=== PATIENT | male | born 1945 | race Caucasian/White ===

== ENCOUNTER → 2016-11-02 | Outpatient (CLI) | payer MEDICARE, BC | DX: E78.2 Mixed hyperlipidemia (principal); R97.20 Elevated prostate specific antigen [PSA]; Z79.899 Other long term (current) drug therapy ==

== ENCOUNTER 2017-01-10 12:42 | Day surgery (SDC) | payer MEDICARE, BC ==
[2017-01-10] MEDS ORDERED: LACTATED RINGERS 1,000 ML IV ONE (13:22)
[2017-01-10] MEDS ORDERED: fentaNYL 250 MCG/5 ML VIAL IVP ONE (13:50)
[2017-01-10] MEDS ORDERED: MIDAZOLAM 2 MG/2 ML VIAL IVP ONE (13:50)
== END 2017-01-10 12:43 | disposition home or self-care (01) ==
PROC: 0DBN8ZX Excision of Sigmoid Colon, Via Natural or Artificial Opening Endoscopic, Diagnostic (ICD-10-PCS; principal; 2017-01-10 14:00)
DX: C18.7 Malignant neoplasm of sigmoid colon (principal); K57.30 Diverticulosis of large intestine without perforation or abscess without bleeding; K64.8 Other hemorrhoids; Z83.3 Family history of diabetes mellitus; E78.00 Pure hypercholesterolemia, unspecified
CPT/HCPCS: 45385; J3010; J7120

== ENCOUNTER 2017-01-19 11:10 | Outpatient (CLI) | payer MEDICARE, BC | END 2017-01-19 11:11 | disposition home or self-care (01) | DX: C18.7 Malignant neoplasm of sigmoid colon (principal) ==

== ENCOUNTER 2017-01-24 11:32 | Outpatient (CLI) | payer MEDICARE, BC ==
[2017-01-24] MEDS ORDERED: IOPAMIDOL-300 50 ML VIAL IVP ONE (13:40)
[2017-01-24] MEDS ORDERED: IOPAMIDOL-300 50 ML VIAL PO ONE (14:00)
== END 2017-01-24 11:33 | disposition home or self-care (01) ==
DX: C18.7 Malignant neoplasm of sigmoid colon (principal)
CPT/HCPCS: 74177; Q9967

== ENCOUNTER 2017-02-08 09:11 | Inpatient (IN) | payer MEDICARE, BC ==
[~2017-02-08 09:11] MED LIST: ceFAZolin 2 GM/50 ML 50 ML IV ONE
[2017-02-08] MEDS ORDERED: LACTATED RINGERS 1,000 ML IV ONE ×4 (09:28→16:35)
[2017-02-08] MEDS ORDERED: ROCURONIUM 50 MG/5 ML VIAL IVP ONE (11:00)
[2017-02-08] MEDS ORDERED: ePHEDrine 50 MG/ML AMP IVP ONE (11:00)
[2017-02-08] MEDS ORDERED: ACETAMINOPHEN 1,000 MG/100 ML VIAL IV ONE (11:00)
[2017-02-08] MEDS ORDERED: fentaNYL 100 MCG/2 ML VIAL IVP ONE (11:00)
[2017-02-08] MEDS ORDERED: PROPOFOL 200 MG/20 ML VIAL IVP ONE (11:00)
[2017-02-08] MEDS ORDERED: MIDAZOLAM 2 MG/2 ML VIAL IVP ONE (11:00)
[2017-02-08] MEDS ORDERED: LIDOCAINE-MPF 2% 5 ML VIAL IM ONE (11:00)
[2017-02-08] MEDS ORDERED: GLYCOPYRROLATE 1 MG/5 ML VIAL IVP ONE (11:00)
[2017-02-08] MEDS ORDERED: HYDROmorphone 1 MG/ML SYRINGE IVP ONE (11:00)
[2017-02-08] MEDS ORDERED: DEXAMETHASONE 4 MG/ML VIAL IVP ONE (11:00)
[2017-02-08] MEDS ORDERED: NEOSTIGMINE 1 MG/1 ML 10 ML MDV IVP ONE (11:00)
[2017-02-08] MEDS ORDERED: cefOXitin 2 GM in SODIUM CHLORIDE 0.9% MINIBAG 100 ML IV ONE (12:00)
[2017-02-08] MEDS ORDERED: BUPIVACAINE 0.5%-EPI 1:200000 PF 30 ML VIAL SUBQ ONE ×2 (13:02)
[2017-02-08] MEDS ORDERED: PHENOL THROAT SPRAY 177 ML MM PRN (17:02)
[2017-02-08] MEDS ORDERED: METOCLOPRAMIDE 10 MG/2 ML VIAL IVP PRN (17:02)
[2017-02-08] MEDS ORDERED: ONDANSETRON 4 MG/2 ML VIAL IVP PRN (17:02)
[2017-02-08] MEDS ORDERED: SODIUM CHLORIDE FLUSH 0.9% 10 ML SYRINGE IVP PRN (17:02)
[2017-02-08] MEDS ORDERED: PIPERACILLIN/TAZOBACTAM 3.375 GM in SODIUM CHLORIDE 0.9% MINIBAG 100 ML IV SCH (18:00)
[2017-02-08] MEDS: D5NS W/20 MEQ KCL 1,000 ML IV SCH (18:11)
[2017-02-08] MEDS: SODIUM CHLORIDE FLUSH 0.9% 10 ML SYRINGE IVP SCH (18:12)
[2017-02-09] MEDS: HYDROmorphone 1 MG/ML SYRINGE IVP PRN ×3 (02:06→21:01)
[2017-02-09 06:01] LABS: BASOPHILS % (AUTO) 0.2 %; EOSINOPHILS % (AUTO) 0.1 %; LYMPHOCYTES # (AUTO) 1.2 10^3/uL (1.5-3.5); LYMPHOCYTES % (AUTO) 14.3 %; MEAN CORPUSCULAR HEMOGLOBIN 31.7 pg (27.0-31.0); MEAN CORPUSCULAR HGB CONC 33.4 g/dL (32.0-36.0); MEAN PLATELET VOLUME 9.5 fL (7.4-11.4); MONOCYTES % (AUTO) 12.4 %; RED BLOOD COUNT 4.42 10^6/uL (4.70-6.10); RED CELL DISTRIBUTION WIDTH 13.4 % (12.0-15.0); UNCORRECTED WHITE BLOOD COUNT 8.2 x10^3/uL; WHITE BLOOD COUNT 8.2 x10^3/uL (4.8-10.8)
[2017-02-09 06:13] LABS: ALBUMIN/GLOBULIN RATIO 1.5 (1.0-2.2); BILIRUBIN,TOTAL 0.7 mg/dL (0.2-1.0); CALCIUM 8.3 mg/dL (8.5-10.3); CREATININE 0.9 mg/dL (0.6-1.2); POTASSIUM 4.3 mmol/L (3.5-5.0); TOTAL PROTEIN 6.1 g/dL (6.7-8.2)
[2017-02-09] MEDS: SODIUM CHLORIDE FLUSH 0.9% 10 ML SYRINGE IVP SCH ×3 (06:52→20:10)
[2017-02-09] MEDS: D5NS W/20 MEQ KCL 1,000 ML IV SCH ×2 (07:34→17:18)
[2017-02-09] MEDS: ENOXAPARIN 40 MG/0.4 ML SYRINGE SUBQ SCH (12:25)
--- NOTE | 2017-02-09 19:19 | OPERATIVE REPORT ---
Operative Report - General Admit Date: 02/08/17 Pre-Op Diagnosis: Sigmoid colon cancer Umbilical hernia Operative Procedure: Laparoscopic sigmoid colectomy Umbilical herniorrhaphy Post-Op Diagnosis: Same - Procedure Note Anesthesia Technique: Primary Surgeon: Randal Secondary Surgeon: Sophia : Professor Of Communication = Tramaine/Francisca : Fluids = 3200 mL, Urine output refer to nurse's notes Pathology: Sigmoid colon Estimated Blood Loss (in cc): 20 Drain/Tube Type: negative: Lamont drain, Constavac drain, Hemovac, Noam Caruso flat drain, Noam Caruso round drain, Noam Caruso drain, Lumbar drain, Nephrostomy, Osakis, Pig tail catheter, Self contained, T-tube, Other Complications: None - Other Other Information/Narrative: Details of the procedure: After verbal and written informed consent was obtained detailing the risks of infection, bleeding with all of its risks including transfusion, and the patient was brought to the operative suite and placed initially in the supine position on the operating room table and then once anesthetized in stirrups taking care to pad all extremities. Monitoring devices were applied along with TEDs and pneumatic compressive stockings. Care was taken to avoid pressure points. Prophylactic antibiotics were given. An adequate level of general endotracheal anesthesia was established by Naa Redd. Please note that the enesthetists for this procedure included Naa Redd who started the case and Jae Espinosa who completed the case. The abdomen was then prepped with ChloraPrep and draped in a sterile fashion. A "time in" then confirmed that the paitient was identified with 3 identifiers (name, birthdate and medical record number), the history and physical was in the chart, the signed consent confirming the procedure was in the chart, the patient was in the correct position, the aforementioned prophylactic measures were in place or given, we had the correct personel and equipment to complete the procedure and that anesthesia, surgery and nursing were given an opportunuty to express any concerns. The initial incision was at the umbilicus and dissection to the umbilical hernia sac was completed using blunt dissection. The sac was grasped with a Felicia and incised gaining entry into the abdomen. Through this opening a 12 mm blunt tipped, balloon tipped port was placed and the balloon was inflated to keep the port in position. The abdominal cavity was insufflated with carbon dioxide to steady-state pressure of 15 mmHg. Two additional 5 mm ports were placed in standard location for laparoscopic sigmoid colectomy (right anterior axillary line mid-abdomen and left anterior axillary line 3 cm above the left anterior iliac promontory), and a 12 mm port at the right anterior axillary line 3 cm above the left anterior iliac promontory. There were all placed under direct vision and without incident. The patient was then place in a rather steep Trendelenberg position with the right lateral decubitus tilt and a medial to lateral approach was employed. The interface of the mesentary and the retroperitoneum was opened using serial application of the Ligasure. In so doing and with some traction and countertraction the inferior mesenteric artery (JENNY) immediately came into view , as well as two avascular mesenteric windows, above and below the JENNY. The JENNY was circumferentially isolated. Through the inferior avascular window the left ureter was seen and carefully preserved. These windows were used for retraction lifting the mesentary to the anterior abdominal wall so as to minimize trauma to the tissues. With the JENNY and IMV skeletonized and the left ureter clearly and safely away from the dissection the JENNY and IMV were ligated close to the artery's junction with the aorta to ensure that an adequate lymph node yield was achieved. This was accomplished using a endostapler with a vascular load. The dissection continued superiorly and inferiorly through these relatively avascular planes using traction and countertraction as well as the Ligasure when vessels were encountered. In this manner the distal sigmoid and distal descending colon was mobilized. At this point, the patient was placed in reverse Trendeleberg position still with the right lateral decubitus tilt and the descending colon was retracted toward the anterior abdominal wall and the midline of the peritoneal cavity. The line of fusion between the posterior aspect of the colon mesentery and the retroperitoneum (white line of Toldt) marked the line of dissection, allowing mobilization of the remaining left colon to the midline. The colon was retracted, and the white line of Toldt was scored with Ligasure as well as Bovie electrocautery all the way to the splenic flexure and with traction and countertraction the colon was brought to the midline. Throughout this dissection the left ureter was seen and unharmed. The proposed proximal transection point was then mobilized into the pelvis and noted to reach into the pelvis without any tension. I was satisfied the the anastamosis would be able to be accomplished without any tension on the anastamosis. The distal margin of the transection was determined and the colon was transected at this point with the endostapler using a GI load. The distal colon was then grasped with an endoBabcock. After releasing the insufflation, the umbilical incision was then enlarged to 4 cm with a scalpel and the fascial opening was similarly enlarged. A wound protector was placed. The endoBabcock was used to pass the distal colon margin up to the umbilical incision. The colon was grasped and gently brought out through the skin incision. The proximal point of transection was determined and a reusable automatic pursestring device was placed across the colon and the pursestring created with the passage of a 3-0 Prolene on a Akin needle through the device. With a bowel clamp on the bowel about to be transected to minimze spillage, the bowel was transected with a scalpel and sent off the operative field to be sent to pathology. The pursestring was opened and a 31 mm anvil from an EEA stapler placed in the open end and the pursestring tied tight around the post. This was then dropped into the abdomen and the wound protector removed. The fascia at the umbilcus was closed in order to allow us to re-establish a pneumoperitoneum thus repairing the umbilical hernia. With the pneumoperitoneum re-established the EEA stapler was placed transanally with the aid of a water soluble lubricant and the spike brought out under direct vision. There was some difficulty placing the stapler due to some ano- rectal stenosis but eventually the stapler could be seen placed close to the stapled, transected distal sigmoid colon. Please note that the spike could not be placed through or near our staple line rather there is a small "blind end." The post of the anvil was then placed over the spike and the stapler screwed down tight and fired thus creating the colocolostomy. With the pelvis filled with sterile saline, the rectum was filled with air using a proctoscope and no leak of air was noted. Satisfied that there was no leak, the saline was removed. The anastamosis was visually checked for a leak and there was none. There was no bleeding noted. All port sites were the injected at the peritoneal, fascial and skin levels with 1/2% Marcaine under direct vision. Meticulous hemostasis was obtained using Bovie electrocautery. The skin incisions were approximated with a running 4-0 Monocryl. At this point a time out was performed that confirmed that all the counts were correct, the procedure that was performed, the blood loss, the IV fluids administered, and the patients condition. The prep was washed off and Benzoin and steristrips were applied. Having tolerated the procedure well, the patient was subsequently extubated and taken to recovery room in good and stable condition.
[2017-02-10] MEDS: D5NS W/20 MEQ KCL 1,000 ML IV SCH ×4 (00:07→21:29)
[2017-02-10] MEDS: HYDROmorphone 1 MG/ML SYRINGE IVP PRN ×3 (03:23→16:35)
[2017-02-10] MEDS: SODIUM CHLORIDE FLUSH 0.9% 10 ML SYRINGE IVP SCH ×3 (05:23→21:30)
[2017-02-10] MEDS: ENOXAPARIN 40 MG/0.4 ML SYRINGE SUBQ SCH (09:23)
--- NOTE | 2017-02-10 23:48 | PROVIDER PROGRESS NOTE ---
Subjective - General Admit Date: 02/08/17 Procedure Date: 02/08/17 Post Op Days: 2 Procedure Performed: Laparoscopic sigmoidectomy and umbilical herniorrhaphy - Review of Systems Wound/Incisions: positive: Healing well (Minimal ecchymosis) General: positive: No symptoms (Generally feels good. 19 laps around nurses station. No flatus yet.) HEENT: positive: No symptoms Pulmonary: positive: No symptoms Cardiovascular: positive: No symptoms Gastrointestinal: positive: No symptoms, Abdominal pain (Minimal.) Objective - Patient Data Vital Signs: Vital Signs x48h Temp Pulse Resp BP Pulse Ox 02/10/17 19:45 36.9 C 80 16 121/80 98 02/10/17 16:00 36.7 C 87 18 150/90 H 98 Weight: Weight 02/08/17 02/09/17 02/10/17 23:59 23:59 23:59 Weight (kg) 75.1 kg Intake & Output: Intake and Output Totals x24h 02/08/17 02/09/17 02/10/17 23:59 23:59 23:59 Intake Total 4150 2665 2350 Output Total 400 1317 250 Balance 3750 1348 2100 - Lab Results Lab Results: 02/09/17 05:32 02/09/17 05:32 - Current Medications Current Medications: Current Medications Generic Name Dose Route Start Last Admin Trade Name Freq PRN Reason Stop Dose Admin Enoxaparin Sodium 40 mg 02/09/17 09:00 02/10/17 09:23 Lovenox SUBQ 40 mg DAILY ZAC Administration Hydromorphone HCl 0.5 mg 02/08/17 17:02 02/10/17 16:35 Dilaudid Inj IVP 0.5 mg Q30M PRN Administration PAIN Potassium Chloride/Dextrose/Sod Cl 1,000 mls @ 83 mls/hr 02/10/17 09:25 21:29 IV 83 mls/hr .Q12H3M ZAC Administration Sodium Chloride 10 ml 02/08/17 22:00 02/10/17 21:30 Normal Saline Flush 0.9% IVP Not Given Q8HR ZAC - Physical Exam Wound/Incisions: positive: Healing well (Minimal ecchymosis more around right lateral wound. No erythema.) General Appearance: positive: No acute distress Eyes Bilateral: positive: No lid inflammation, Conjunctivae nml, No scleral icterus Neck: positive: Trachea midline Respiratory: positive: Chest non-tender, No respiratory distress, Breath sounds nml Cardiovascular: positive: Regular rate & rhythm Abdomen: positive: Abnml bowel sounds (Slightly decreased.) Skin: positive: Color nml Extremities: positive: Non-tender, Full ROM, Nml appearance Neurologic/Psychiatric: positive: Oriented x3, Motor nml, Mood/affect nml Impression/Plan - Problem List Problem List: Day 2 s/p laparoscopic sigmoidectomy for cancer and umbilical herniorrhaphy 1) FEN: Doing well. No flatus yet. Tolerating saliva and ice chips. IVF decreased to 83 mL/hr. 2) Activity: Doing exceptionally well. Can have TEDs and venadynes removed as he is walking a lot. 3) Pathology: Not back yet. 4) GI: Awaiting bowel function to feed.
[2017-02-11] MEDS: HYDROmorphone 1 MG/ML SYRINGE IVP PRN (00:05)
[2017-02-11] MEDS: SODIUM CHLORIDE FLUSH 0.9% 10 ML SYRINGE IVP SCH (05:44)
[2017-02-11 08:32] VITALS: BP 133/87
[2017-02-11] MEDS ORDERED: D5NS W/20 MEQ KCL 1,000 ML IV SCH (09:10)
[2017-02-11] MEDS: ENOXAPARIN 40 MG/0.4 ML SYRINGE SUBQ SCH (09:11)
--- NOTE | 2017-02-11 13:26 | PROVIDER PROGRESS NOTE ---
Subjective - General Admit Date: 02/08/17 Procedure Date: 02/08/17 Post Op Days: 3 Procedure Performed: Laparoscopic sigmoidectomy and umbilical herniorrhaphy - Review of Systems Wound/Incisions: positive: Healing well (Minimal ecchymosis more around right lateral wound. No erythema.) General: positive: No symptoms (Generally feels good. 19 laps around nurses station. No flatus yet.) HEENT: positive: No symptoms Pulmonary: positive: No symptoms Cardiovascular: positive: No symptoms Gastrointestinal: positive: No symptoms, Flatus (Twice today.) Musculoskeletal: positive: No symptoms Skin: positive: No symptoms Psychiatric: positive: No symptoms Objective - Patient Data Reviewed Vital Signs: Yes Vital Signs: Vital Signs x48h Temp Pulse Resp BP Pulse Ox 02/11/17 08:31 36.6 C 81 14 133/87 H 98 Intake & Output: Intake and Output Totals x24h 02/09/17 02/10/17 02/11/17 23:59 23:59 23:59 Intake Total 2665 2350 758 Output Total 1317 250 250 Balance 1348 2100 508 - Lab Results Lab Results: 02/09/17 05:32 02/09/17 05:32 - Current Medications Current Medications: Current Medications Generic Name Dose Route Start Last Admin Trade Name Freq PRN Reason Stop Dose Admin Enoxaparin Sodium 40 mg 02/09/17 09:00 02/11/17 09:11 Lovenox SUBQ Not Given DAILY ZAC Hydromorphone HCl 0.5 mg 02/08/17 17:02 02/11/17 00:05 Dilaudid Inj IVP 0.5 mg Q30M PRN Administration PAIN Potassium Chloride/Dextrose/Sod Cl 1,000 mls @ 30 mls/hr 02/11/17 09:10 10:49 IV 30 mls/hr .[id number] ZAC Administration Sodium Chloride 10 ml 02/08/17 22:00 02/11/17 05:44 Normal Saline Flush 0.9% IVP Not Given Q8HR ZAC - Physical Exam Wound/Incisions: positive: Healing well General Appearance: positive: No acute distress Eyes Bilateral: positive: No lid inflammation, Conjunctivae nml, No scleral icterus Neck: positive: Trachea midline Respiratory: positive: Chest non-tender, No respiratory distress, Breath sounds nml Cardiovascular: positive: Regular rate & rhythm Abdomen: positive: Nml bowel sounds Skin: positive: Color nml Extremities: positive: Non-tender, Full ROM, Nml appearance Neurologic/Psychiatric: positive: Oriented x3 Comments/Other: Made 19 laps around nurses station yesterday and more today. Impression/Plan - Problem List Problem List: D3 s/p laparoscopic sigmoidectomy for cancer and umbilical herniorrhaphy Discharge home. Follow up with me in 1 week. Call with questions. General diet. No lifting >15 pounds for 6 weeks. Discussed with patient and .
--- NOTE | 2017-02-11 13:29 | Discharge Plan ---
Discharge Plan Disposition: Home, Self Care Condition: Good Prescriptions: Docusate Sodium 250Mg Capsule [Colace 250Mg Capsule] 250 mg PO DAILY #10 capsule oxyCODONE/ACET 5/325 [Percocet 5 mg/325 mg] 1 each PO Q4-6H #20 tablet Activity Restrictions: No lifting >15 pounds. (Patient can walk, run, climb stairs, general diet, shower, hot tub, swim and have sex.) Shower Restrictions: No Driving Restrictions: No Weight Bearing: Full Weight Additional Instructions or Follow Up instructions: Call with surgical questions . No Smoking: If you smoke, Please STOP! Call for help. Follow-up with: Fransisco Alcaraz MD [Primary Care Provider] - Remy Tee MD [Provider Admit Priv/Credential] -
--- NOTE | 2017-04-11 13:10 | DISCHARGE SUMMARY ---
DATE OF ADMISSION: 02/08/2017 DATE OF DISCHARGE: 02/11/2017 The patient was admitted to the hospital on 02/09/2017 with an admission diagnosis of sigmoid colon c ancer and umbilical hernia. He was taken to the operating room on the same date where a laparoscopic sigmoid colectomy and umbilical herniorrhaphy was performed. The surgeons of record are Randal and Sophia. The anesthetists were Tramaine and Francisca. Postoperatively the patient did well and was dis charged to home on the second postoperative date, 02/11/2017. He had been started on a liquid diet on the first postoperative day and graduated to a general diet on the 2nd prior to discharge. His activ ity or restrictions were no lifting greater than 15 pounds. He was told that he can walk, run, climb stairs, general diet, shower, hot tub, swim, and even have sex. He was to bear full weight. He is to followup with us in a week. He was also to followup with Dr. Fransisco Alcaraz in 1 to 2 weeks for any medical issues. JOB #: [id number] EXT JOB #:[id number]
== END 2017-02-11 14:11 | disposition home or self-care (01) | DRG 331 ==
LOC: MS 09:11
PROVIDERS: ADMIT Surgery; ATTEND Surgery
PROC: 0DBN4ZZ Excision of Sigmoid Colon, Percutaneous Endoscopic Approach (ICD-10-PCS; principal; 2017-02-08 10:15)
DX: C18.7 Malignant neoplasm of sigmoid colon (principal); K42.9 Umbilical hernia without obstruction or gangrene; E78.00 Pure hypercholesterolemia, unspecified; R06.83 Snoring; Z79.899 Other long term (current) drug therapy
CPT/HCPCS: 36415; 80053; 85025; 88307

== ENCOUNTER 2017-11-02 08:00 | Outpatient (CLI) | payer MEDICARE, BC ==
[2017-11-02 13:34] LABS: CHOL/HDL RATIO 4.2 (<5.0); CHOLESTEROL 154 mg/dL; HDL CHOLESTEROL 37 mg/dL; LDL CHOLESTEROL,CALCULATED 84 mg/dL; LDL/HDL RATIO 2.3 (<3.6); VLDL CHOLESTEROL 33 mg/dL
== END 2017-11-02 08:01 | disposition home or self-care (01) ==
LOC: LAB.R 08:00
PROVIDERS: ATTEND Internal Medicine
DX: Z12.5 Encounter for screening for malignant neoplasm of prostate (principal); E78.5 Hyperlipidemia, unspecified
CPT/HCPCS: 80061; G0103; 83721; 84153

== ENCOUNTER 2018-11-14 17:31 | Outpatient (CLI) | payer MEDICARE, BC | END 2018-11-14 17:32 | disposition EMS.NT | LOC: EMS 17:31 | PROVIDERS: ATTEND Surgery | DX: R09.89 Other specified symptoms and signs involving the circulatory and respiratory systems (principal) ==

== ENCOUNTER 2019-01-15 08:09 | Day surgery (SDC) | payer MEDICARE, BC ==
[2019-01-15] MEDS ORDERED: LACTATED RINGERS 1,000 ML IV ONE (08:45)
[2019-01-15] MEDS ORDERED: fentaNYL 100 MCG/2 ML VIAL IVP ONE (09:25)
[2019-01-15] MEDS ORDERED: MIDAZOLAM 2 MG/2 ML VIAL IVP ONE (09:25)
[2019-01-15 10:07] VITALS: BP 147/80
== END 2019-01-15 08:10 | disposition home or self-care (01) ==
LOC: SDS 08:09
PROVIDERS: ATTEND Surgery
PROC: 0DJD8ZZ Inspection of Lower Intestinal Tract, Via Natural or Artificial Opening Endoscopic (ICD-10-PCS; principal; 2019-01-15 09:45)
DX: Z08 Encounter for follow-up examination after completed treatment for malignant neoplasm (principal); Z85.038 Personal history of other malignant neoplasm of large intestine; Z90.49 Acquired absence of other specified parts of digestive tract; K64.8 Other hemorrhoids; K43.2 Incisional hernia without obstruction or gangrene
CPT/HCPCS: 45378; J7120

== ENCOUNTER 2020-03-11 08:50 | Outpatient (CLI) | payer MEDICARE, BC ==
[2020-03-11 09:05] LABS: BASOPHILS % (AUTO) 0.7 %; EOSINOPHILS # (AUTO) 0.2 10^3/uL (0.0-0.7); HGB - HEMOGLOBIN 16.7 g/dL (14.0-18.0); LYMPHOCYTES # (AUTO) 1.7 10^3/uL (1.5-3.5); LYMPHOCYTES % (AUTO) 30.2 %; MEAN CORPUSCULAR HEMOGLOBIN 31.3 pg (27.0-31.0); MEAN CORPUSCULAR HGB CONC 32.8 g/dL (32.0-36.0); MEAN CORPUSCULAR VOLUME 95.5 fL (80.0-94.0); MEAN PLATELET VOLUME 10.5 fL (7.4-11.4); MONOCYTES # (AUTO) 0.5 10^3/uL (0.0-1.0); MONOCYTES % (AUTO) 9.2 %; NEUTROPHILS # (AUTO) 3.1 10^3/uL (1.5-6.6); NEUTROPHILS % (AUTO) 55.4 %; PLT - PLATELET COUNT 148 10^3/uL (130-450); RED BLOOD COUNT 5.33 10^6/uL (4.70-6.10); RED CELL DISTRIBUTION WIDTH 12.5 % (12.0-15.0); WHITE BLOOD COUNT 5.5 x10^3/uL (4.8-10.8)
[2020-03-11 09:23] LABS: HB2 TOTAL 17.7 g/dL; HEMOGLOBIN A1C 0.66 g/dL; HEMOGLOBIN A1C % 5.6 % (4.6-6.2)
[2020-03-11 09:26] LABS: ALBUMIN 4.6 g/dL (3.2-5.5); ALBUMIN/GLOBULIN RATIO 1.7 (1.0-2.2); ALKALINE PHOSPHATASE 40 IU/L (42-121); ALT ALANINE AMINOTRANSFERASE 32 IU/L (10-60); AST ASPARTATE AMINOTRANSFERASE 27 IU/L (10-42); BILIRUBIN,TOTAL 0.6 mg/dL (0.2-1.0); BUN - BLOOD UREA NITROGEN 19 mg/dL (6-20); CALCIUM 9.5 mg/dL (8.5-10.3); CARBON DIOXIDE - CO2 28 mmol/L (21-32); CHLORIDE 104 mmol/L (101-111); CHOL/HDL RATIO 5.4 (<5.0); CHOLESTEROL 196 mg/dL; CREATININE 0.9 mg/dL (0.6-1.2); GLUCOSE 95 mg/dL (70-100); HDL CHOLESTEROL 36 mg/dL; LDL CHOLESTEROL,CALCULATED 105 mg/dL; LDL/HDL RATIO 2.9 (<3.6); SODIUM 138 mmol/L (135-145); TOTAL PROTEIN 7.3 g/dL (6.7-8.2); VLDL CHOLESTEROL 55 mg/dL
== END 2020-03-11 08:51 | disposition home or self-care (01) ==
LOC: LAB 08:50
PROVIDERS: ATTEND Family Medicine
DX: C18.9 Malignant neoplasm of colon, unspecified (principal); Z12.5 Encounter for screening for malignant neoplasm of prostate; E78.5 Hyperlipidemia, unspecified
CPT/HCPCS: 36415; 80053; 80061; 83036; 84443; 85025; G0103; 83721; 84153

== ENCOUNTER 2020-09-05 11:00 | Outpatient (CLI) | payer MEDICARE, BC | END 2020-09-05 11:01 | disposition home or self-care (01) | LOC: COV 11:00 | PROVIDERS: ATTEND Surgery | DX: Z01.812 Encounter for preprocedural laboratory examination (principal); K22.2 Esophageal obstruction; Z20.828 Contact with and (suspected) exposure to other viral communicable diseases ==

== ENCOUNTER 2020-09-10 07:05 | Day surgery (SDC) | payer MEDICARE, BC ==
[2020-09-10] MEDS ORDERED: MIDAZOLAM 2 MG/2 ML VIAL IVP ONE (07:06)
[2020-09-10] MEDS ORDERED: fentaNYL 100 MCG/2 ML VIAL IVP ONE (07:06)
[2020-09-10] MEDS ORDERED: LACTATED RINGERS 1,000 ML IV ONE ×2 (07:24→08:52)
[2020-09-10] MEDS ORDERED: LIDO GARGLE 30 ML BOTTLE PO ONE (08:22)
[2020-09-10] MEDS ORDERED: BENZOCAINE/TETRACAINE/BUTAMBEN 20 GM TOP ONE (08:23)
[2020-09-10] MEDS ORDERED: LIDO GARGLE 30 ML BOTTLE ONE (08:25)
[2020-09-10 09:25] VITALS: BP 129/85
== END 2020-09-10 07:06 | disposition home or self-care (01) ==
LOC: SDS 07:05
PROVIDERS: ATTEND Surgery
PROC: 0DB58ZX Excision of Esophagus, Via Natural or Artificial Opening Endoscopic, Diagnostic (ICD-10-PCS; principal; 2020-09-10 08:15)
DX: R13.10 Dysphagia, unspecified (principal); K22.2 Esophageal obstruction; K44.9 Diaphragmatic hernia without obstruction or gangrene; K29.70 Gastritis, unspecified, without bleeding; Z85.038 Personal history of other malignant neoplasm of large intestine; Z90.49 Acquired absence of other specified parts of digestive tract
CPT/HCPCS: 43239; A9270; J7120

== ENCOUNTER 2020-10-29 12:02 | Outpatient (CLI) | payer MEDICARE, BC ==
--- NOTE | 2020-10-29 12:46 | XRAY Report ---
PROCEDURE: Knee 4 View LT INDICATIONS: KNEE JOINT PAIN,LEFT..STANDING TECHNIQUE: 4 views of the left knee(s) were acquired. COMPARISON: None. FINDINGS: Bones: No fractures or dislocations. Mild to moderate tricompartment osteoarthritis is seen more pr ominent in medial femoral tibial compartment. No patellar subluxation. No suspicious bony lesions. Soft tissues: No joint effusion. Chondrocalcinosis in medial and lateral femoral tibial compartments are seen. IMPRESSION: Mild to moderate tricompartmental osteoarthritis more prominent in medial femoral tibial compartment. No fracture or dislocation. Chondrocalcinosis in medial and lateral femoral tibial comp artment. No significant joint effusion. Reviewed by: Jarod Hutton MD on 10/29/2020 12:45 PM PST Approved by: Jarod Hutton MD on 10/29/2020 12:45 PM PST Station ID: [id number]
== END 2020-10-29 12:03 | disposition home or self-care (01) ==
LOC: DI 12:02
PROVIDERS: ATTEND Family Medicine
DX: M17.12 Unilateral primary osteoarthritis, left knee (principal); M11.262 Other chondrocalcinosis, left knee

== ENCOUNTER 2021-06-15 09:09 | Outpatient (CLI) | payer MEDICARE, BC ==
[2021-06-15 09:51] LABS: BASOPHILS % (AUTO) 0.8 %; EOSINOPHILS # (AUTO) 0.2 10^3/uL (0.0-0.7); EOSINOPHILS % (AUTO) 4.2 %; HCT - HEMATOCRIT 51.4 % (42.0-52.0); LYMPHOCYTES # (AUTO) 1.5 10^3/uL (1.5-3.5); LYMPHOCYTES % (AUTO) 28.8 %; MEAN CORPUSCULAR HEMOGLOBIN 31.8 pg (27.0-31.0); MEAN CORPUSCULAR HGB CONC 33.1 g/dL (32.0-36.0); MEAN CORPUSCULAR VOLUME 96.1 fL (80.0-94.0); MEAN PLATELET VOLUME 10.7 fL (7.4-11.4); MONOCYTES # (AUTO) 0.5 10^3/uL (0.0-1.0); MONOCYTES % (AUTO) 8.5 %; NEUTROPHILS % (AUTO) 57.1 %; PLT - PLATELET COUNT 154 10^3/uL (130-450); RED BLOOD COUNT 5.35 10^6/uL (4.70-6.10); RED CELL DISTRIBUTION WIDTH 12.3 % (12.0-15.0); WHITE BLOOD COUNT 5.3 x10^3/uL (4.8-10.8)
[2021-06-15 10:23] LABS: ALBUMIN 4.8 g/dL (3.2-5.5); ALKALINE PHOSPHATASE 47 IU/L (42-121); ALT ALANINE AMINOTRANSFERASE 28 IU/L (10-60); AST ASPARTATE AMINOTRANSFERASE 27 IU/L (10-42); BILIRUBIN,TOTAL 0.8 mg/dL (0.2-1.0); BUN - BLOOD UREA NITROGEN 19 mg/dL (6-20); CALCIUM 9.8 mg/dL (8.5-10.3); CARBON DIOXIDE - CO2 27 mmol/L (21-32); CHLORIDE 105 mmol/L (101-111); CHOL/HDL RATIO 4.4 (<5.0); CHOLESTEROL 186 mg/dL; CREATININE 0.9 mg/dL (0.6-1.2); GFR - MDRD 82 (>89); GLUCOSE 106 mg/dL (70-100); HDL CHOLESTEROL 42 mg/dL; LDL CHOLESTEROL,CALCULATED 116 mg/dL; LDL/HDL RATIO 2.8 (<3.6); POTASSIUM 4.9 mmol/L (3.5-5.0); SODIUM 141 mmol/L (135-145); TOTAL PROTEIN 7.2 g/dL (6.7-8.2); TRIGLYCERIDES 142 mg/dL; VLDL CHOLESTEROL 28 mg/dL
[2021-06-15 10:24] LABS: ESTIMATED AVERAGE GLUCOSE 108 mg/dL (70-100); HEMOGLOBIN A1c% 5.4 % (4.27-6.07)
[2021-06-15 10:29] LABS: THYROID STIMULATING HORMONE 1.87 uIU/mL (0.34-5.60)
== END 2021-06-15 09:10 | disposition home or self-care (01) ==
LOC: LAB 09:09
PROVIDERS: ATTEND Family Medicine
DX: Z00.00 Encounter for general adult medical examination without abnormal findings (principal); M19.90 Unspecified osteoarthritis, unspecified site; E78.5 Hyperlipidemia, unspecified; R73.9 Hyperglycemia, unspecified
CPT/HCPCS: 36415; 80053; 80061; 83036; 83721; 84443; 85025

== ENCOUNTER 2021-07-29 06:20 | Day surgery (SDC) | payer MEDICARE, BC ==
[2021-07-29] MEDS ORDERED: LACTATED RINGERS 1,000 ML IV ONE (06:41)
--- NOTE | 2021-07-29 07:14 | ANESTHESIA ---
Pre-Anesthesia VS, & Labs - Diagnosis history of polyps - Procedure colonoscopy Vital Signs: Temp Pulse Resp BP Pulse Ox 36.6 C 92 21 155/89 H 96 07/29/21 06:43 07/29/21 06:43 07/29/21 06:43 07/29/21 06:43 07/29/21 06:43 Height: 6 ft Weight (kg): 78.1 kg Body Mass Index: 23.3 BMI Classification: Healthy weight - NPO >8 hours Home Medications and Allergies Home Medications: Ambulatory Orders Omeprazole 40 mg PO DAILY 07/28/21 Acetaminophen [Tylenol] 325 mg PO Q4H PRN 01/10/17 Fenofibrate 160 mg ORAL DAILY 01/10/17 Tylenol Pm 2 mg PO DAILY PM 09/09/20 Omeprazole 40 mg PO DAILY 07/28/21 Allergies/Adverse Reactions: Allergies Allergy/AdvReac Type Severity Reaction Status Date / Time aspirin AdvReac Anaphylaxis Verified 07/29/21 06:49 Anes History & Medical History - Anesthetic History Anesthesia Complications: reports: No previous complications - Medical History Cardiovascular: reports: None Pulmonary: reports: None Gastrointestinal: reports: GERD, Colon polyps Urinary: reports: Benign prostate hypertrophy Musculoskeletal: reports: Osteoarthritis Endocrine/Autoimmune: reports: None Skin: reports: None History of Cancer?: Yes - Surgical History General: reports: Bowel surgery, Colonoscopy Eyes Ears Nose Throat (EENT): reports: Cataracts Exam General: Alert, Oriented x3 Dental: WNL Mouth Opening: Greater than 4 Fingerbreadths Neck Mobility: Normal Mallampati classification: II Thyromental Distance: greater than 6 cm Respiratory: Lungs clear Cardiovascular: Regular rate Plan Anesthesia Type: Total IV Consent for Procedure(s) Verified and Reviewed: Yes Code Status: Attempt Resuscitation ASA classification: 2-Mild systemic disease Is this case an emergency?: No
[2021-07-29] MEDS ORDERED: LIDOCAINE-MPF 2% 5 ML VIAL ONE (07:32)
[2021-07-29] MEDS ORDERED: LACTATED RINGERS 600 ML IV ONE (07:59)
[2021-07-29 08:16] VITALS: BP 128/76
--- NOTE | 2021-07-29 12:28 | ANESTHESIA POST OP EVALUATION ---
Anesthesia Post Eval - Post Anesthesia Eval Vitals: Last Vital Signs Temp 36.4 C L 07/29/21 07:59 Pulse 88 07/29/21 08:16 Resp 22 07/29/21 08:16 BP 128/76 07/29/21 08:16 Pulse Ox 95 07/29/21 08:16 CV Function Including HR & BP: Stable Pain Control: Satisfactory Nausea & Vomiting: Negative Mental Status: Baseline Respiratory Status: Airway Patent Hydration Status: Satisfactory Anesthesia Complications: None
== END 2021-07-29 06:21 | disposition home or self-care (01) ==
LOC: SDS 06:20
PROVIDERS: ATTEND Surgery
DX: Z12.11 Encounter for screening for malignant neoplasm of colon (principal); K64.8 Other hemorrhoids; Z98.0 Intestinal bypass and anastomosis status; Z85.038 Personal history of other malignant neoplasm of large intestine; Z90.49 Acquired absence of other specified parts of digestive tract; K21.9 Gastro-esophageal reflux disease without esophagitis
CPT/HCPCS: G0105; J7120

== ENCOUNTER 2022-06-17 09:58 | Outpatient (CLI) | payer MEDICARE, BC ==
[2022-06-17 10:20] LABS: BASOPHILS # (AUTO) 0.1 10^3/uL (0.0-0.1); BASOPHILS % (AUTO) 0.9 %; EOSINOPHILS # (AUTO) 0.2 10^3/uL (0.0-0.7); EOSINOPHILS % (AUTO) 3.3 %; HGB - HEMOGLOBIN 17.4 g/dL (14.0-18.0); LYMPHOCYTES # (AUTO) 1.7 10^3/uL (1.5-3.5); LYMPHOCYTES % (AUTO) 24.3 %; MEAN CORPUSCULAR HGB CONC 34.1 g/dL (32.0-36.0); MEAN CORPUSCULAR VOLUME 93.9 fL (80.0-94.0); MEAN PLATELET VOLUME 11.1 fL (7.4-11.4); MONOCYTES # (AUTO) 0.7 10^3/uL (0.0-1.0); MONOCYTES % (AUTO) 9.4 %; NEUTROPHILS # (AUTO) 4.3 10^3/uL (1.5-6.6); NEUTROPHILS % (AUTO) 61.8 %; PLT - PLATELET COUNT 142 10^3/uL (130-450); RED BLOOD COUNT 5.43 10^6/uL (4.70-6.10); RED CELL DISTRIBUTION WIDTH 12.5 % (12.0-15.0)
[2022-06-17 10:43] LABS: ALBUMIN 4.8 g/dL (3.2-5.5); ALBUMIN/GLOBULIN RATIO 1.8 (1.0-2.2); ALKALINE PHOSPHATASE 43 IU/L (42-121); ALT ALANINE AMINOTRANSFERASE 24 IU/L (10-60); AST ASPARTATE AMINOTRANSFERASE 24 IU/L (10-42); BILIRUBIN,TOTAL 0.7 mg/dL (0.2-1.0); BUN - BLOOD UREA NITROGEN 22 mg/dL (6-20); CALCIUM 9.8 mg/dL (8.5-10.3); CARBON DIOXIDE - CO2 28 mmol/L (21-32); CHLORIDE 103 mmol/L (101-111); CHOL/HDL RATIO 3.8 (<5.0); CHOLESTEROL 156 mg/dL; GFR - MDRD 73 (>89); GLUCOSE 96 mg/dL (70-100); HDL CHOLESTEROL 41 mg/dL; LDL CHOLESTEROL,CALCULATED 95 mg/dL; LDL/HDL RATIO 2.3 (<3.6); POTASSIUM 4.7 mmol/L (3.5-5.0); SODIUM 137 mmol/L (135-145); TOTAL PROTEIN 7.5 g/dL (6.7-8.2); TRIGLYCERIDES 102 mg/dL; VLDL CHOLESTEROL 20 mg/dL
[2022-06-17 10:53] LABS: THYROID STIMULATING HORMONE 2.35 uIU/mL (0.34-5.60)
[2022-06-17 16:46] LABS: ESTIMATED AVERAGE GLUCOSE 108 mg/dL (70-100); HEMOGLOBIN A1c% 5.4 % (4.27-6.07)
== END 2022-06-17 09:59 | disposition home or self-care (01) ==
LOC: LAB 09:58
PROVIDERS: ATTEND Family Medicine
DX: K21.9 Gastro-esophageal reflux disease without esophagitis (principal); R73.9 Hyperglycemia, unspecified; C18.9 Malignant neoplasm of colon, unspecified; E78.5 Hyperlipidemia, unspecified
CPT/HCPCS: 36415; 80053; 80061; 83036; 83721; 84443; 85025